=== PATIENT | female | born 1960 | race Caucasian/White ===

== ENCOUNTER 2017-08-13 11:00 | Emergency (ER) | payer BC, OTHER ==
[~2017-08-13] VITALS: Ht 182.9 cm; Wt 85.6 kg
[2017-08-13 11:05] VITALS: Ht 182.9 cm; Wt 85.6 kg
[2017-08-13] MEDS: ONDANSETRON INJ 2 MG/ML 2 ML VIAL IV STA ×2 (11:25→14:29)
[2017-08-13] MEDS ORDERED: SODIUM CHLORIDE 0.9% 1000ML 1,000 ML IV STA ×2 (11:25→13:54)
[2017-08-13] MEDS ORDERED: KETOROLAC TROMETHAMINE 30 MG/ML VIAL IV STA (11:25)
--- NOTE | 2017-08-13 11:51 | DIAGNOSTIC IMAGING REPORT ---
CHEST ONE VIEW PORTABLE CLINICAL HISTORY: ABDOMINAL PAIN/GI pain. Nausea. COMPARISON STUDY: 10/06/2014 FINDINGS: The bones soft tissues and hemidiaphragms are normal. The cardiomediastinal silhouette is normal. The lungs are clear. The pulmonary vasculature is normal. IMPRESSION: Negative chest. The above report was generated using voice recognition software. It may contain grammatical, syntax or spelling errors. Electronically signed by: Arvind Brito M.D. 08/13/2017 11:50 AM Dictated Date/Time: 08/13/2017 11:49 AM
[2017-08-13 11:52] LABS: BASO % 0.2 %; BASO ABS # 0.02 K/uL (0-0.2); HEMATOCRIT 38.5 % (37-47); HEMOGLOBIN 13.3 g/dL (12.0-16.0); IG# 0.03 K/uL (0.00-0.02); LYMPH % 12.6 %; MEAN CELL VOLUME 97.5 fL (80-100); MEAN CORPUSCULAR HEMOGLOBIN 33.7 pg (25-34); MEAN CORPUSCULAR HGB CONC 34.5 g/dl (32-36); MEAN PLATELET VOLUME 10.2 fL (7.4-10.4); MONO % 7.8 %; MONO ABS # 0.81 K/uL (0.11-0.59); NEUT % 79.1 %; NEUT ABS # 8.17 K/uL (1.4-6.5); PLATELET COUNT 180 K/uL (130-400); RED CELL DISTRIBUTION WIDTH CV 13.8 % (11.5-14.5); RED CELL DISTRIBUTION WIDTH SD 49.9 fL (36.4-46.3); WHITE BLOOD COUNT 10.33 K/uL (4.8-10.8)
[2017-08-13 12:09] LABS: ALBUMIN 3.8 gm/dl (3.4-5.0); CALCIUM 8.8 mg/dl (8.5-10.1); CREATININE 0.71 mg/dl (0.60-1.20); POTASSIUM 3.8 mmol/L (3.5-5.1)
[2017-08-13 12:12] LABS: TOTAL PROTEIN 7.3 gm/dl (6.4-8.2)
[2017-08-13] MEDS ORDERED: IBUP-1050 PO (12:31)
[2017-08-13 12:41] LABS: INFLUENZA B ANTIGEN Neg for Influ B (NEG)
[2017-08-13] MEDS ORDERED: ACETAMINOPHEN 500 MG TAB PO STA (13:54)
[2017-08-13] MEDS ORDERED: ONDANSETRON INJ 2 MG/ML 2 ML VIAL ONE (14:13)
[2017-08-13] MEDS ORDERED: ONDA4TAB46 PO (15:06)
[2017-08-13] MEDS ORDERED: PRED50TA PO (15:06)
[2017-08-13] MEDS ORDERED: PRVHFAIN INH (15:06)
[2017-08-13] MEDS ORDERED: BENZ100C18 PO (15:06)
--- NOTE | 2017-08-13 15:08 | EMERGENCY ROOM VISIT NOTE ---
History Report prepared by Daron: More Lynn Under the Supervision of: Dr. Milan Longoria M.D. First contact with patient: 11:09 Chief Complaint: FLU LIKE SX Stated Complaint: FLU, COUGHING, VOMITING AND DIARRHEA History of Present Illness The patient is a 57 year old white female with a past medical history of IBS, arthritis, hysterectomy, cholecystectomy who presents to the ED with a cc of persistent cough beginning 6 weeks ago. Her cough produces clear, yellow, and green mucous. Positive nausea, vomiting, diarrhea, chest pain and SOB with coughing, abdominal pain with coughing. Negative urinary symptoms, leg swelling. She smokes 0.5 ppd. She has not smoked for the past 2 days. She does drink well water. No recent antibiotic use or travel. No sick contacts. She did not receive a flu shot this season. Source of History: patient Onset: 6 weeks ago Position: other (global) Quality: other (cough) Timing: other (persistent) Associated Symptoms: + nausea, + vomiting, + diarrhea, No urinary symptoms Review of Systems See HPI for pertinent positives and negatives. A total of ten systems were reviewed and were otherwise negative. Past Medical & Surgical Medical Problems: (1) IBS (irritable bowel syndrome) Surgical Problems: (1) S/P cholecystectomy Family History Cancer Diabetes mellitus Heart disease Hypertension Social History Smoking Status: Current Every Day Smoker Alcohol Use: none Drug Use: none Marital Status: Occupation Status: employed Current/Historical Medications Scheduled Albuterol (Ventolin Hfa), 2 PUFFS INH QID Ibuprofen (Advil), 400 MG PO UD Prednisone (Prednisone), 50 MG PO DAILY Scheduled PRN Benzonatate (Tessalon Perles), 100 MG PO TID PRN for Cough Ondansetron Hcl (Zofran), 4 MG PO Q8H PRN for Nausea Allergies Coded Allergies: Warfarin (Verified Adverse Reaction, Intermediate, "WORKED TOO WELL- BLED TOO MUCH", 08/13/17) WAS TOLD BY HER NEVER TO TAKE Physical Exam Vital Signs Date Time Temp Pulse Resp B/P (MAP) Pulse Ox O2 Delivery O2 Flow Rate FiO2 08/13/17 15:49 36.9 104 20 127/67 98 08/13/17 14:35 112 22 132/64 97 Room Air 08/13/17 13:23 111 20 98/67 98 Room Air 08/13/17 12:05 119 08/13/17 11:05 37.3 123 28 115/73 97 Room Air Physical Exam GENERAL: Awake, alert, well-appearing, NAD HENT: Normocephalic, atraumatic. EYES: Normal conjunctiva. Sclera non-icteric. NECK: Supple. No nuchal rigidity. FROM. RESPIRATORY: CTAB, no rhonchi, wheezing, crackles CARDIAC: Tachycardic and regular, no MRG ABDOMEN: Soft, NTND, BS+ MSK: No chest wall TTP, no LE edema NEURO: GCS 15, CN 2-12 intact, moves all 4s on command SKIN: No rash or jaundice noted. Medical Decision & Procedures ER Provider Diagnostic Interpretation: Xray results as stated below per my and radiologist interpretation: CHEST ONE VIEW PORTABLE CLINICAL HISTORY: ABDOMINAL PAIN/GI pain. Nausea. COMPARISON STUDY: 10/06/2014 FINDINGS: The bones soft tissues and hemidiaphragms are normal. The cardiomediastinal silhouette is normal. The lungs are clear. The pulmonary vasculature is normal. IMPRESSION: Negative chest. The above report was generated using voice recognition software. It may contain grammatical, syntax or spelling errors. Electronically signed by: Arvind Brito M.D. 08/13/2017 11:50 AM Dictated Date/Time: 08/13/2017 11:49 AM Laboratory Results 08/13/17 11:40 Red Blood Count 3.95, Mean Corpuscular Volume 97.5, Mean Corpuscular Hemoglobin 33.7, Mean Corpuscular Hemoglobin Concent 34.5, Mean Platelet Volume 10.2, Neutrophils (%) (Auto) 79.1, Lymphocytes (%) (Auto) 12.6, Monocytes (%) (Auto) 7.8, Eosinophils (%) (Auto) 0.0, Basophils (%) (Auto) 0.2, Neutrophils # (Auto) 8.17, Lymphocytes # (Auto) 1.30, Monocytes # (Auto) 0.81, Eosinophils # (Auto) 0.00, Basophils # (Auto) 0.02 08/13/17 11:40 Test 08/13/17 11:30 08/13/17 11:40 08/13/17 15:29 Influenza Type A Antigen Neg for Influ A (NEG) Influenza Type B Antigen Neg for Influ B (NEG) White Blood Count 10.33 K/uL (4.8-10.8) Red Blood Count 3.95 M/uL (4.2-5.4) Hemoglobin 13.3 g/dL (12.0-16.0) Hematocrit 38.5 % (37-47) Mean Corpuscular Volume 97.5 fL (80-100) Mean Corpuscular Hemoglobin 33.7 pg (25-34) Mean Corpuscular Hemoglobin Concent 34.5 g/dl (32-36) Platelet Count 180 K/uL (130-400) Mean Platelet Volume 10.2 fL (7.4-10.4) Neutrophils (%) (Auto) 79.1 % Lymphocytes (%) (Auto) 12.6 % Monocytes (%) (Auto) 7.8 % Eosinophils (%) (Auto) 0.0 % Basophils (%) (Auto) 0.2 % Neutrophils # (Auto) 8.17 K/uL (1.4-6.5) Lymphocytes # (Auto) 1.30 K/uL (1.2-3.4) Monocytes # (Auto) 0.81 K/uL (0.11-0.59) Eosinophils # (Auto) 0.00 K/uL (0-0.5) Basophils # (Auto) 0.02 K/uL (0-0.2) RDW Standard Deviation 49.9 fL (36.4-46.3) RDW Coefficient of Variation 13.8 % (11.5-14.5) Immature Granulocyte % (Auto) 0.3 % Immature Granulocyte # (Auto) 0.03 K/uL (0.00-0.02) Anion Gap 9.0 mmol/L (3-11) Est Creatinine Clear Calc Drug Dose 100.9 ml/min Estimated GFR () 109.6 Estimated GFR (Non- 94.6 BUN/Creatinine Ratio 20.9 (10-20) Calcium Level 8.8 mg/dl (8.5-10.1) Total Bilirubin 0.5 mg/dl (0.2-1) Direct Bilirubin 0.1 mg/dl (0-0.2) Aspartate Amino Transf (AST/SGOT) 12 U/L (15-37) Alanine Aminotransferase (ALT/SGPT) 16 U/L (12-78) Alkaline Phosphatase 58 U/L (45-117) Total Protein 7.3 gm/dl (6.4-8.2) Albumin 3.8 gm/dl (3.4-5.0) Lipase 108 U/L (73-393) Bedside Troponin I < 0.030 ng/ml (0-0.045) Laboratory results reviewed by me Medications Administered Medications (Trade) Dose Ordered Sig/Ann Route Start Time Stop Time Status Last Admin Dose Admin Sodium Chloride 1,000 ml @ 999 mls/hr Q1H1M STAT IV 08/13/17 11:25 08/13/17 12:25 DC 08/13/17 11:57 999 MLS/HR Ondansetron HCl (Zofran Inj) 4 mg NOW STAT IV 08/13/17 11:25 08/13/17 11:27 DC 08/13/17 14:29 4 MG Ketorolac Tromethamine (Toradol Inj) 30 mg NOW STAT IV 08/13/17 11:25 08/13/17 11:27 DC 08/13/17 11:58 30 MG Acetaminophen (Tylenol Tab) 1,000 mg NOW STAT PO 08/13/17 13:54 08/13/17 13:56 DC 08/13/17 14:30 1,000 MG Sodium Chloride 1,000 ml @ 999 mls/hr Q1H1M STAT IV 08/13/17 13:54 08/13/17 14:54 DC 08/13/17 14:29 999 MLS/HR ECG Indication: tachycardia Rate (beats per minute): 116 Rhythm: sinus tachycardia Findings: other (normal intervals, normal axis, no STS changes or TWI) Change: Patient's electrocardiogram interpreted by me. ED Course 1120: The patient was evaluated in room A11B. A complete history and physical exam was performed. 1450: I reevaluated the patient. Discussed results and discharge instructions: She verbalized understanding and agreement. The patient is ready for discharge. Medical Decision The patient is a 57 year old white female with a past medical history of IBS, arthritis, hysterectomy, cholecystectomy who presents to the ED with a cc of persistent cough beginning 6 weeks ago. Differential diagnosis: Etiologies such as infections, reactive airway disease, pneumonia, pneumothorax , COPD, CHF, cardiac ischemia, pulmonary embolism, musculoskeletal, gastrointestinal, as well as others were entertained. Patient seen and evaluated at bedside. Complaints of chronic cough, dry heaves, and loose stools. Ongoing x 6 weeks. No recent travel, abx. Does use well water. No one else sick at home. Patient w/ tachycardia. Does complain of SOB/ CP but related to coughing fits not exertional. No orthopnea. Blood work completed, EKG, CXR and trx'ed symptomatically. Patient able to tolerated PO. EKG non ischemic. Trop added and negative. Less likely ACS. Even in light of patient's tachycardia, given the chronicity of complaints likely related to dehydration and less likely PE. CXR clear. Flu neg. WBC WNL. Patient feeling improved. Encouraged rest and continued symptomatic trx w/ OTC meds in addition to Rx's given to patient. Encouraged to quit smoking and given tips on smoking cessation. This is likely contributing. Patient tolerated PO. Encouraged liberal clear liquids and to advance diet as tolerated. Patient feeling improved. I believe patient is suitable to continue hydrating and management of symptoms at home at this time. Told to return if unable to tolerate meds/ fluids. Patient given f/u, d/c, and return precautions and was d/c'ed to home. Medication Reconcilliation Current Medication List: was personally reviewed by me Blood Pressure Screening Patient's blood pressure: Normal blood pressure Blood pressure disposition: Did not require urgent referral Impression Primary Impression: Cough Additional Impressions: SOB (shortness of breath) Chest pain Nausea & vomiting Encounter for smoking cessation counseling Scribe Attestation The scribe's documentation has been prepared under my direction and personally reviewed by me in its entirety. I confirm that the note above accurately reflects all work, treatment, procedures, and medical decision making performed by me. Departure Information Dispostion Home / Self-Care Prescriptions Ondansetron Hcl (ZOFRAN) 4 Mg Tab 4 MG PO Q8H Y for Nausea, #6 TAB Prov: Milan Longoria M.D. 08/13/17 Benzonatate (TESSALON PERLES) 100 Mg Cap 100 MG PO TID Y for Cough for 7 Days, #21 CAP Prov: Milan Longoria M.D. 08/13/17 Prednisone (Prednisone) 50 Mg Tab 50 MG PO DAILY for 4 Days, #4 TAB Prov: Milan Longoria M.D. 08/13/17 Albuterol (Ventolin Hfa) 60 Puffs/5400 Mcg Aers 2 PUFFS INH QID for 5 Days, #1 INHALER Prov: Milan Longoria M.D. 08/13/17 Referrals Gordon Garay M.D.([facility]) (PCP) Patient Instructions Bronchitis Chronic Dc, Chest Cold (Bronchitis) - [facility], Coughing Techniques, ED Smoking Cessation, [facility] Additional Instructions Please return to the emergency department if you have worsening or recurrent symptoms not amenable to at-home treatment. Please call for a follow-up appointment with her primary care physician. Please take your medications as prescribed. If you have other concerns and/or complaints please feel free to also call your primary care physician's office or return the ED for further evaluation, management, and treatment. Please consider smoking cessation. You may take 600 mg Ibuprofen every 6 hours as needed for pain with food for no more than 2 consecutive days. You may take tylenol 1000 mg every 6 hours as needed for pain. You may take motrin and tylenol separately or at the same time. Take your medications as prescribed. Please take the steroids preferably in the morning and with food as they may cause some upset stomach and may cause you to be more hyperactive. Use your albuterol while on the steroids initially 2 puffs every 4 hours the first day, 2 puffs every 6 hours the second day, 1 puff every 4 hours the third day, and then 1 puff every 6 hours the fourth day. At this point he should finish her steroids and only use the inhaler as needed. You have been examined and treated today on an emergency basis only. This is not a substitute for, or an effort to provide, complete comprehensive medical care. It is impossible to recognize and treat all injuries or illnesses in a single emergency department visit. It is therefore important that you follow up closely with [facility], your PCP, and/or your specialist(s). Call as soon as possible for an appointment. Thank you for your time and consideration. I look forward to speaking with you again soon. Please don't hesitate to call us if you have any questions. Problem Qualifiers Additional Impressions: Chest pain Chest pain type: unspecified Qualified Codes: R07.9 - Chest pain, unspecified Nausea & vomiting Vomiting type: unspecified Vomiting Intractability: non-intractable Qualified Codes: R11.2 - Nausea with vomiting, unspecified
[2017-08-13 15:49] VITALS: BP 127/67; PULSE 104; TEMP 36.9; O2SAT 98
== END 2017-08-13 15:50 | disposition home or self-care (01) ==
LOC: C.EDB 11:03 → C.EDA 15:50
DX: R05 Cough (principal); R06.02 Shortness of breath; R07.9 Chest pain, unspecified; R11.2 Nausea with vomiting, unspecified; Z71.6 Tobacco abuse counseling; K58.9 Irritable bowel syndrome, unspecified; M19.90 Unspecified osteoarthritis, unspecified site; Z90.710 Acquired absence of both cervix and uterus; Z90.49 Acquired absence of other specified parts of digestive tract; F17.210 Nicotine dependence, cigarettes, uncomplicated; Z80.9 Family history of malignant neoplasm, unspecified; Z83.3 Family history of diabetes mellitus; Z82.49 Family history of ischemic heart disease and other diseases of the circulatory system; Z79.899 Other long term (current) drug therapy

== ENCOUNTER 2021-10-16 10:00 | Observation (INO) ==
--- NOTE | 2021-10-11 11:52 | Anesthesiology Consultation ---
Date of Service October 11, 2021 Assessment & Plan (1) Encounter for pre-operative examination: Chart Review Chart Review: Acceptable Risk for Surgery (pending preop Covid testing results ) and Patient NOT seen in Pre Admission Testing Per nursing assessment 10/11/2021, patient admits to local travel only. No known Covid infection in the past 90 days. Patient is fully vaccinated for Covid. No known Covid positive exposures or Covid related symptoms. Preop Covid testing scheduled 10/14/21= will await results History Surgery Operation Date: 10/16/21 10:40 Proposed Procedures p Left Total Knee Arthroplasty - Shawn Macedo MD Height/Weight Height: 6 ft Weight: 84.368 kg Allergies Allergy/AdvReac Type Severity Reaction Status Date / Time warfarin AdvReac Intermediate Had Verified 10/11/21 10:26 clotting while on Coumadin Medications Home Medications Medication Instructions Recorded Confirmed Last Taken omeprazole 40 mg capsule,delayed 40 mg PO QAM 06/20/21 10/11/21 Unknown release hydrocodone 5 mg-acetaminophen 325 1 tab PO Q8H PRN #90 tab 09/26/21 10/11/21 Unknown mg tablet amitriptyline 25 mg tablet 25 mg PO HS #30 tab 10/03/21 10/11/21 Unknown Past Medical History Medical History Anxiety Depression DVT (deep venous thrombosis) DVT to to lower extremities in 1978 - put on Coumadin- clots broke up in lower extremities but traveled to [place] - admitted and treated- no known cause for clots per patient (pt denies FH of blood clotting issues) Had no issues until 2007- has clot to right knee s/p right TKA No current AC- follows only with PCP- surgeon aware - plans to put on AC post op GERD (gastroesophageal reflux disease) Well controlled and stable History of IBS Stable Insomnia PVC (premature ventricular contraction) History- no recent issues Rheumatoid arthritis Does not follow with rheumatolgist Spinal stenosis TIA (transient ischemic attack) Hx of TIA- 1999- no residual issues - no issues since (pt feels TIA occurred secondary to stress) Past Family History Family History Father Throat cancer Diabetes Myocardial infarction Other No family history of adverse response to anesthesia Denies family history of Ovarian cancer Prostate cancer Breast cancer Colorectal cancer Past Surgical History Surgical History Fusion of spine C5-7 > ROM IS GOOD NO RESTRICTIONS History of adenoidectomy History of arthroscopy mult Rt knee History of carpal tunnel release BILAT History of cholecystectomy History of colonoscopy History of esophagogastroduodenoscopy (EGD) History of hemorrhoidectomy History of hysterectomy History of laparoscopy History of oophorectomy History of tonsillectomy History of total knee replacement RIGHT Hx of foot surgery BL Social History Smoking Status: Current every day smoker tobacco type: cigarettes Smoking cigarettes per day: 10 a day (advised) Do You Dip or Chew Tobacco: No Hx Alcohol Use: Yes Alcohol type: beer alcohol intake frequency: a few times a week Hx Substance Use: No substance use type: does not use Lab Results Anesthesia Preop Results Results Anesthesia Widget: WBC 6.99 K/uL (4.8-10.8) 10/04/21 Hgb 15.0 g/dL (12.0-16.0) 10/04/21 Hct 44.3 % (37-47) 10/04/21 Plt 280 K/uL (130-400) 10/04/21 Na 138 mmol/L (136-145) 10/04/21 K 5.2 mmol/L (3.5-5.1) H 10/04/21 Cl 105 mmol/L (98-107) 10/04/21 CO2 28 mmol/L (21-32) 10/04/21 BUN 14 mg/dl (6-23) 10/04/21 Creat 0.71 mg/dl (0.6-1.2) 10/04/21 Glucose Level 94 mg/dl (70-99(Fasting)) 10/04/21 PT 10.2 Seconds (9.0-12.0) 10/04/21 INR 1.0 (0.9-1.1) 10/04/21 Blood Type A Positive 10/04/21 Antibody Screen NEGATIVE 10/04/21 Testing Electrocardiogram Date: 06/24/21 SR with sinus arrhythmia with 1st degree AVB at 92bpm. Nonspecific ST abnormality Prolonged QT When compared to EKG from Aug 13, 2017- [place] interval has increased Chest X-Ray Date: 06/24/21 Findings: + NAD Cervical Spine Date: 06/24/21 No acute fracture or subluxation. Anterior plate and screw fusion at C6-C7. No evidence of hardware complication. Straightening of the normal cervical lordosis. Anterior plate and screw fusion with discectomy changes at C6-C7. There is suggested complete bony fusion of these vertebral bodies. The visualized hardware appears intact. There is mild intervertebral disc space narrowing with anterior endplate bridging osteophytic spurring at C5-C6. Mild disc space narrowing is also noted at C4-C5 with mild multilevel uncovertebral spurring and moderate facet arthrosis. No prevertebral edema.
--- NOTE | 2021-10-12 09:43 | History and Physical Report ---
DATE OF ADMISSION: 10/16/2021. CHIEF COMPLAINT: Persistent left knee pain and discomfort. HISTORY OF PRESENT ILLNESS: A 61-year-old female who presents for surgical treatment of her left kne e. She has got a long history of knee problems and had her right knee replaced back in 2007. She monte s done pretty well from this. She continued to be bothered by left knee pain for the past several ye ars. She has been through extensive conservative treatment including steroid shots and viscosuppleme ntation. The shots have become less successful. She cannot take NSAIDs as she has got a history of Crohn's disease. Pain has become more disabling. It is mostly medial pain, but some global pain, in creased with walking. It is worse as the day goes on. Knee swells and gets stiff as the day goes on . She would like to have this fixed. She does have a question of a DVT in the past. There is no known clotting disorder. PAST MEDICAL HISTORY: Significant for: 1. TIA. 2. Gastroesophageal reflux disease. 3. Osteoarthritis. PAST SURGICAL HISTORY: Includes: 1. Hysterectomy. 2. Right knee replacement in 2007. 3. Neck surgery x2. 4. Hemorrhoid surgery. 5. Cholecystectomy. 6. Appendectomy. 7. Tonsillectomy. 8. Carpal tunnel releases. 9. Foot surgery. ALLERGIES: None. CURRENT MEDICATIONS: Include: 1. Amitriptyline. 2. Prilosec. SOCIAL HISTORY: A 61-year-old female. She smokes half a pack of cigarettes a day. 6-10 drinks per w [place]. FAMILY HISTORY: Noncontributory. REVIEW OF SYSTEMS: Negative for diabetes. There is this question of a DVT in the past. No known cl otting disorder and she is not on any anticoagulation. No chest pain or shortness of breath. PHYSICAL EXAMINATION: GENERAL: Shows a pleasant middle-aged female. Looks to be in reasonably good health. HEENT: Benign. NECK: Supple. No lymphadenopathy. LUNGS: Clear to auscultation. HEART: Has a regular rate and rhythm. ABDOMEN: Soft, nontender, nondistended. EXTREMITIES: Grossly neurovascularly intact except as follows. Examination of the left knee revealed a patient who ambulates with a slight bit of a limp. She has g ot slight varus alignment to her knee. She is tender over the medial joint line with some bony hyper trophy there. Small knee effusion. Range of motion about 10 degrees short of full extension to 115 degrees of flexion. A fairly stiff knee. No pain with hip motion. Examination of the right knee reveals well-healed incision. She has anatomic alignment. No swelling . Range of motion is 0 to 120. X-RAYS: X-rays of the left knee reviewed. It shows advanced left knee joint disease. She got osteo phytes medially. She has subchondral sclerosis and some chondrocalcinosis. The right knee replaceme nt looks to be in acceptable position. She does have patellofemoral arthritis as well. ASSESSMENT: A 61-year-old female, 13 years out from a right knee replacement done in the area with l eft knee degenerative joint disease and chondrocalcinosis. She has failed conservative measures. Sh e has got pretty stiff knee and would like to have her knee fixed. She cannot take NSAIDs due to her ulcerative colitis. PLAN: We are going to proceed with left knee replacement. The risks and benefits of this procedure have been explained to the patient and include but not limited to DVT, PE, , infection, neurolog ical injury, vascular injury, bleeding problem, pain, limited range of motion, stiffness, failure to relieve her symptoms, incomplete relief of symptoms, need for further surgery in the future, etc. Th e patient understands and desires to proceed. Informed consent obtained. Due to this history of a questionable blood clot in the past, we are going to use Xarelto for 30 days postop. I will see her back 2 weeks postop. Job ID: [id number]
[~2021-10-16 10:00] MED LIST: ACETAMINOPHEN 500 MG TAB PO SCH; BUPIVACAINE 0.5 % 5 MG/1 ML PF 10ML VIAL ONE; BUPIVACAINE LIPOSOME/PF 266 MG, BUPIVACAINE/EPINEPHRINE 50 ML, SODIUM CHLORIDE 0.9% 30 ... INFIL SCH; FAMOTIDINE 20 MG TAB PO SCH; GABAPENTIN 600 MG DOSE PO SCH; LR 500ML BOLUS, THEN 15ML/HR IV SCH; LR 60ML/HR IV SCH; METOCLOPRAMIDE HCL 10 MG TABLET PO SCH; ROPIVACAINE 0.5% 5 MG/ML 30 ML VIAL ONE; Scopolamine 1 MG TDSY TD SCH; TRANEXAMIC ACID 1,000 MG **IV Intra-op IV SCH; ceFAZolin 2000MG 2,000 MG/15 ML SYR IV SCH
--- NOTE | 2021-10-16 10:58 | History & Physical Bridge Note ---
Date of Service October 16, 2021 History & Physical Bridge Note I have examined the patient, reviewed the History & Physical and in the interval since the performance of the History & Physical I have noted the following changes of clinical significance: no changes noted
[2021-10-16] MEDS ORDERED: PROMETHAZINE HCL 12.5 MG in SODIUM CHLORIDE 0.9% 50 ML IV PRN (12:03)
[2021-10-16] MEDS ORDERED: ePHEDrine sulfate 50 MG/ML AMP IV PRN (12:03)
[2021-10-16] MEDS ORDERED: ONDANSETRON INJ 2 MG/ML 2 ML VIAL IV PRN ×2 (12:03→15:18)
[2021-10-16] MEDS ORDERED: fentaNYL citrate 100 MCG/2 ML VIAL IV PRN (12:03)
[2021-10-16] MEDS ORDERED: MoRPHine SULFATE 10 MG/ML CARP/VIAL IV PRN (12:03)
[2021-10-16] MEDS ORDERED: ATROPINE SULFATE 0.1 MG/ML 10ML SYR IV PRN (12:03)
[2021-10-16] MEDS ORDERED: LIDOCAINE 2% 2 ML VIAL/AMP(20MG/ML) INFIL ONE (12:05)
[2021-10-16] MEDS ORDERED: fentaNYL citrate 100 MCG/2 ML VIAL ONE (12:05)
[2021-10-16] MEDS ORDERED: PROPOFOL IV EMULSION 10 MG/ML 20 ML VIAL IV ONE ×2 (12:05→14:15)
[2021-10-16] MEDS ORDERED: MIDAZOLAM HCL 1 MG/ML 2ML VIAL ONE ×3 (12:05→13:00)
[2021-10-16] MEDS ORDERED: BUPIVACAINE/EPINEPHRINE 0.25% 1:200,000 30 ML VIAL ONE (12:42)
[2021-10-16] MEDS ORDERED: BUPIVACAINE LIPOSOME 1.3% 266 MG/20 ML VIAL ONE (12:43)
[2021-10-16] MEDS ORDERED: SODIUM CHLORIDE 0.9% PF 50 ML VIAL ONE (12:43)
[2021-10-16] MEDS ORDERED: KETAMINE 50 MG/5 ML SYRINGE ONE (13:02)
[2021-10-16] MEDS ORDERED: GLYCOPYRROLATE 0.2 MG/ML VIAL ONE (13:40)
--- NOTE | 2021-10-16 14:39 | Operative Report ---
PG Post Operative Report Pre & Post Diagnosis Operation Date: 10/16/21 12:30 Pre-Op Diagnosis: Left Knee Advanced Degenerative Joint Disease Post-Op Diagnosis: Left Knee Advanced Degenerative Joint Disease I identified the patient and participated in the time-out.: Yes Procedure Operation Date: 10/16/21 12:30 Actual Procedures p Left Total Knee Arthroplasty(Left) - Shawn Macedo MD Surgeon Shawn Macedo MD Pastoral Counselor Herman Lopez PA-C Estimated Blood Loss 50 Findings Consistent with Post-Op Diagnosis Operative findings were advanced left knee DJD. She pretty extensive grade 4 [id number] disease the medial and patellofemoral compartments. She had some spotty grade 4 changes laterally. She had fairly significant diffuse osteopenia. Fairly neutral alignment to her knee. Moderate-sized knee effusion. Fluids 1500 cc Specimens Left knee sent for pathology Drains None Anesthesia Type Spinal MAC Complications none Disposition Accompanied Patient To Recovery: No Indications Patient is 61-year-old female is had a fairly long history of left knee pain discomfort has become less responsive conservative treatment. X-rays show a moderate to advanced left knee DJD. She is undergone a right knee replaced in the past and done well from that. She elected proceed with left total knee arthroplasty. Description of Procedure Operative implants consist of: 1. Biomet Vanguard size 70 left posterior stabilized femoral component. 2. Biomet size 71 tibial tray. 3. 12 mm posterior stabilized polyethylene insert. 4. 31 x 8 all polypatella. The patient was taken to the operating, identified, and placed on the operating table supine position protectors were properly padded. IV antibiotics tried by anesthesia team. A spinal anesthetic and abductor canal block and provided in the holding area. A Baez catheter was placed in sterile fashion. A left thigh turn was then placed in the left lower extremities then prepped and draped in usual sterile fashion. The left leg was elevated exsanguinated with use of an Esmarch in terms playset 300 mmHg. An anterior approach left knee was then performed to longitudinal incision centered over the patella. Sharp dissection was carried through subcutaneous tissue down to the extensor mechanism. A medial parapatellar arthrotomy incision was made. Some subperiosteal dissection was carried out medially. The fat pad was resected beneath patella tendon. Lateral patellofemoral ligament was released. Patella subluxated laterally and the knee was flexed. The osteophytes taken off the distal femur. The ACL and PCL were then released from the distal femur and the tibia subluxated anteriorly. The external tibial alignment jig was then placed in the interface the tibia and adjusted 14 mm medially. Proximal tibial cut was made remove 3 to 4 mm of bone from the medial side. The tibia was sized to a size 71. We did try to maximize coverage due to her osteopenia. Attention drawn the femur. The distal femur was entered with a sharp drill. Intramedullary canal was suction. A left 5 degree valgus cutting guide was placed. Distal femoral cutting block was pinned in place. Distal femoral cut was made to take an additional 3 mm bone off distal femur. Femur was then sized to a size 70. We did downsize this slightly. The AP cutting block was pinned parallel to the epicondylar axis which was 3 degrees of external rotation. The anterior cut, anterior chamfer, posterior cut, posterior chamfer cuts were made. The box cutting guide was placed in the just slight lateral box cut was made. The knee was flexed. The remnants of the medial and lateral menisci were excised. The osteophytes were taken off the posterior aspect of the femur. The trial femoral component was placed. The tibial tray was pinned in maximum external rotation and the drill and stem punch recreate the defect in the proximal tibia for the tibial tray. The knee was then trialed and the 12 mm insert fit most appropriately. Attention drawn the patella. Nupathe the patella was cleaned of all soft tissues. Patella thickness measured 22 mm in thickness was cut down to 13. We sized this to a size 31 patella. I did downsize this as she did have some patella maltracking and I want to medialize the patella is much as possible. The lug holes were drilled for the 31 patella. The lateral osteophyte was removed. Patella button was placed. The knee was taken through range of motion and the patella tracked nicely with no thumbs test. Attention drawn to placing permanent components. All trial components were removed. Bone plug was placed in the distal femur limit blood loss. Double batch Palacos G cement was mixed. A Biomet Vanguard size 70 left posterior stabilized femoral component, a size 71 tibial tray, a 12 mm posterior stabilized polyethylene insert, and a 31 x 8 all polypatella then cemented in place. Knee was brought out in full extension until cement hardened. Final cement check was then performed. Pericapsular tissues were injected with a total of 100 cc of combination of 20 cc of Exparel, 30 cc normal saline, 50 cc of quarter percent Marcaine with epinephrine. Patient did receive 1 g tranexamic acid but the tourniquet was then let down for final turn time 53 minutes. Hemostasis assured use electrocautery. Extensor mechanism closed with combination 1 PDS suture #1 Vicryl suture in [id number] fashion. Extensor mechanism checked found to be intact with subcutaneous tissue then closed with 2 Dexon suture in a buried interrupted fashion skin was closed skin trish. Leg was then cleaned and dried a sterile dressing with Xeroform, 4 x 4's, sterile cast padding, Cristobal bandage were applied. Patient then transferred to the recovery room in stable condition. Patient tolerated the procedure well and there were no complications. Herman Lopez, my physician architectural administrative assistant, was present for the entire procedure. His assistance was essential and required for appropriate patient positioning, prepping and draping, surgical exposure, performing the technical details of the operation, placement the implants, closure of the wound, and placement of the sterile bandage. I attest to the content of the Intraoperative Record and any orders documented therein. Any exceptions are noted below.
--- NOTE | 2021-10-16 14:55 | XRay Report ---
XR knee LT 1 or 2V routine CLINICAL HISTORY: Surgical Post Op. Status post total knee replacement COMPARISON STUDY: 04/05/2021 TECHNIQUE: 2 right knee views FINDINGS: The patient is status post total knee replacement. The prosthetic components are in anatomi c alignment with no acute abnormality seen. Air is present within the soft tissues from the procedure . Skin trish are seen anteriorly. IMPRESSION: 1. Status post total knee replacement. ACT 112: Negative or not required by law. Electronically signed by: Rei Lamar M.D. 10/16/2021 2:53 PM
[2021-10-16] MEDS ORDERED: NALOXONE HCL 0.4 MG/1 ML VIAL/CARP IV PRN (15:18)
[2021-10-16] MEDS ORDERED: METOCLOPRAMIDE HCL INJ 5 MG/ML 2 ML VIAL IV PRN (15:18)
[2021-10-16] MEDS ORDERED: diphenhydrAMINE Capsule 25 MG CAP PO PRN (15:18)
[2021-10-16] MEDS ORDERED: oxyCODONE HCL IR 5 MG TAB (IMMEDIATE RELEASE) PO PRN (15:18)
[2021-10-16] MEDS ORDERED: ALUMINUM/MAGNESIUM SUSP 30 ML UDC PO PRN (15:18)
[2021-10-16] MEDS ORDERED: MAGNESIUM HYDROXIDE SUSP 30 ML UDC PO PRN (15:18)
[2021-10-16] MEDS ORDERED: bisacodyL 10 MG SUPP PR PRN (15:18)
--- NOTE | 2021-10-16 15:22 | Anesthesiology Progress Note ---
Date of Service October 16, 2021 Anesthesia Post Procedure Vital Signs Vital Signs: Temp Pulse Pulse Resp BP Pulse Ox 10/16/21 14:50 36.4 C L 70 18 121/78 99 10/16/21 14:40 95 H 18 104/57 L 98 10/16/21 14:33 36.0 C L 93 H 12 115/66 97 10/16/21 10:31 37.0 C 99 H 18 143/87 H 96 Pain Intensity Left Knee: Pain Intensity: 2 Transfer of Care Handoff Completed per policy Notes Mental Status: alert / awake / arousable and participated in evaluation Patient Amnestic to Procedure: Yes Nausea / Vomiting: adequately controlled Pain: adequately controlled Airway Patency, RR, SpO2: stable & adequate BP & HR: stable & adequate Hydration State: stable & adequate Neuraxial Anesthesia: was administered and sensory block is resolving Anesthetic Complications: no major complications apparent
[2021-10-16] MEDS: SODIUM CHLORIDE 0.9% 1000ML 1,000 ML IV SCH (16:37)
[2021-10-16] MEDS: KETOROLAC 30 MG/ML VIAL IV SCH ×2 (16:41→20:27)
[2021-10-16] MEDS: Scopolamine CHECK PATCH PLACEMENT SCH ×2 (16:46→22:46)
[2021-10-16] MEDS: HYDROmorphone INJ 0.5 MG/0.5 ML SYR IV PRN (17:44)
[2021-10-16] MEDS: ASCORBIC ACID 500 MG TAB PO SCH (18:43)
[2021-10-16] MEDS: ceFAZolin 2000MG 2,000 MG/15 ML SYR IV SCH (20:25)
[2021-10-16] MEDS: DOCUSATE SODIUM 100 MG CAP PO SCH (20:26)
[2021-10-16] MEDS: TAPENTADOL HCL ER 50 MG TABCR PO SCH (20:26)
[2021-10-16] MEDS ORDERED: TRANEXAMIC ACID / 0.7% NACL 1,000 MG/100 ML BAG IV SCH (20:30)
[2021-10-16] MEDS ORDERED: AMITRIPTYLINE HCL 25 MG TAB PO SCH (21:00)
[2021-10-16] MEDS ORDERED: ACETAMINOPHEN 500 MG TAB PO SCH (21:00)
[2021-10-16] MEDS ORDERED: SENNA 8.6 MG TAB PO SCH (21:00)
[2021-10-16] MEDS: ACETAMINOPHEN 500 MG TAB PO SCH (21:41)
[2021-10-17] MEDS: KETOROLAC 30 MG/ML VIAL IV SCH ×2 (02:31→11:29)
[2021-10-17] MEDS: SODIUM CHLORIDE 0.9% 1000ML 1,000 ML IV SCH (02:39)
[2021-10-17] MEDS: ACETAMINOPHEN 500 MG TAB PO SCH (05:41)
[2021-10-17] MEDS: ceFAZolin 2000MG 2,000 MG/15 ML SYR IV SCH (05:41)
[2021-10-17] MEDS: ASCORBIC ACID 500 MG TAB PO SCH (07:19)
[2021-10-17] MEDS: Scopolamine CHECK PATCH PLACEMENT SCH (07:19)
[2021-10-17 07:52] LABS: Hematocrit (blood only) 34.6 % (37-47); Hemoglobin 11.6 g/dL (12.0-16.0); Mean Corpuscular Hemoglobin 33.8 pg (25-34); Mean Corpuscular Hgb Conc 33.5 g/dL (32-36); Mean Corpuscular Volume 100.9 fL (80-100); Platelet Count 174 K/uL (130-400); RDW Coefficient of Variation 13.9 % (11.5-14.5); RDW Standard Deviation 51.1 fL (36.4-46.3); Red Blood Count 3.43 M/uL (4.2-5.4); White Blood Count 7.37 K/uL (4.8-10.8)
[2021-10-17] MEDS ORDERED: dexAMETHasone 10 MG in SYRINGE 0 ML IV SCH (08:00)
[2021-10-17 08:18] LABS: BUN Creatinine Ratio 21.7 (10-20); Calcium 8.2 mg/dl (8.5-10.1); Creatinine Clr Calc Pharmacy 98.8 ml/min; Est GFR (African American) 108.9 ml/min; Potassium 4.2 mmol/L (3.5-5.1)
[2021-10-17] MEDS ORDERED: MULTIVITAMIN TAB PO SCH (09:00)
[2021-10-17] MEDS ORDERED: DOCUSATE SODIUM/SENNA 50/8.6MG TAB PO SCH (09:00)
[2021-10-17] MEDS ORDERED: PANTOprazole 40 MG TAB PO SCH (09:00)
--- NOTE | 2021-10-17 09:39 | Progress Notes ---
DATE OF SERVICE: 10/17/2021. SUBJECTIVE: A 61-year-old female postoperative day 1 from a left knee replacement. She had a pretty good night. Pain is controlled. No chest pain or shortness of breath. Not feeling dizzy or lighth eaded. OBJECTIVE: VITAL SIGNS: Temperature 36.5. Vital signs are stable. GENERAL: Shows a pleasant middle-aged female. She is sitting up in bed, looks pretty comfortable th is morning. LUNGS: Clear to auscultation. HEART: Regular rate and rhythm. ABDOMEN: Soft, nontender, nondistended. EXTREMITIES: Grossly neurovascularly intact except as follows. Examination of the left lower extremity reveals the left leg to be well aligned. Dressing is clean, dry and intact. She can dorsiflex and plantarflex her foot appropriately. She can do a straight leg raise. LABORATORY DATA: Labs are pending. ASSESSMENT: A 61-year-old white female postoperative day 1 from a left knee replacement, doing prett y well. Questionable history of a deep venous thrombosis in the past. PLAN: 1. DVT prophylaxis includes thigh-high TEDs, SCDs, and prophylactic Xarelto starting 24 hours postop for 30 days. 2. PT, OT, weightbear as tolerated. Left total knee protocol. 3. Pain control, doing okay with current pain regimen. 4. Disposition: Plan to discharge to home with some home health when she does okay in therapy. Job ID: [id number]
[2021-10-17] MEDS: HYDROmorphone INJ 0.5 MG/0.5 ML SYR IV PRN (11:11)
[2021-10-17] MEDS: DOCUSATE SODIUM 100 MG CAP PO SCH (11:18)
[2021-10-17] MEDS: TAPENTADOL HCL ER 50 MG TABCR PO SCH (12:38)
[2021-10-17] MEDS ORDERED: RIVAROXABAN 10 MG TABLET PO SCH (15:00)
--- NOTE | 2021-10-22 16:22 | Discharge Summary ---
Date of Service October 22, 2021 Discharge Data Procedures Performed Operation Date: 10/16/21 12:30 Actual Procedures p Left Total Knee Arthroplasty(Left) - Shawn Macedo MD Hospital Course (1) Status post total left knee replacement: This patient is a 61 year old patient admitted on 10/16/21 and underwent total knee arthroplasty. She tolerated the procedure well and there were no complications. Transferred to the PACU post op and later to the orthopedic floor for further care. She was given ancef for antibiotic prophylaxis. She was also given RITA stockings, SCDs, and xarelto for DVT prophylaxis. Hemoglobin, hematocrit, and vital signs were monitored during her hospital stay and remained stable. Did not require any blood transfusions. There were no complications duri ng her hospital stay. By post op day #1 the patient was tolerating a regular diet, pain was reasonably controlled with oral pain medicine, and she was participating in physical therapy. On post op day #1 the patient was discharged home and set up with home health care. She was given printed discharge instructions including prescriptions for extra strength tylenol, xarelto, zofran, and oxycodone. Continue physical therapy, weight bearing as tolerated. Continue RITA stockings. Follow up approximately 2 weeks post op or sooner if there are problems or concerns. Coding Level of Care Code None Diagnoses Status post total left knee replacement Z96.652
== END 2021-10-17 13:21 | disposition home health service (06) ==
LOC: ASU 10:00 → 3N 10:00
DX: Z96.651 Presence of right artificial knee joint; M17.12 Unilateral primary osteoarthritis, left knee; Z90.710 Acquired absence of both cervix and uterus; F17.210 Nicotine dependence, cigarettes, uncomplicated; Z90.49 Acquired absence of other specified parts of digestive tract; Z79.899 Other long term (current) drug therapy; Z98.890 Other specified postprocedural states; K21.9 Gastro-esophageal reflux disease without esophagitis; M79.4 Hypertrophy of (infrapatellar) fat pad